=== PATIENT | male | born 1995 | race Caucasian/White ===

== ENCOUNTER 2021-06-14 06:13 | Day surgery (SDC) | payer OTHER ==
[~2021-06-14] VITALS: Ht 15.2 cm; Wt 46.7 kg
[2021-06-14] MEDS ORDERED: MIDAZOLAM 2 MG/ML ORASYR PO SCH ×2 (07:25→08:10)
[2021-06-14] MEDS ORDERED: MIDAZOLAM 2 MG/ML ORASYR PO ONE ×2 (07:42→08:24)
[2021-06-14] MEDS ORDERED: fentaNYL citrate 0.05 MG/ML VIAL ONE (08:21)
[2021-06-14] MEDS ORDERED: MIDAZOLAM 5 MG/5 ML VIAL ONE (08:21)
[2021-06-14] MEDS ORDERED: MIDAZOLAM 2 MG/2 ML VIAL IVP ONE (09:30)
== END 2021-06-14 09:59 | disposition home or self-care (01) ==
LOC: EDSEX 06:13 → MMU 06:13 → MDS 06:13
PROVIDERS: ATTEND Internal Medicine Gastroenterology
DX: K92.1 Melena (principal); K20.90 Esophagitis, unspecified without bleeding; K44.9 Diaphragmatic hernia without obstruction or gangrene; D50.0 Iron deficiency anemia secondary to blood loss (chronic); Z79.899 Other long term (current) drug therapy
CPT/HCPCS: 43235; J2250; J3010